=== PATIENT | male | born 1975 | race African-American/Black ===

== ENCOUNTER 2023-07-19 10:19 | Emergency (ER) | payer OTHER, SELFPAY ==
--- NOTE | ~2023-07-19 | CT_ITS ---
EXAMINATION: CT lumbar spine wo con DATE: 07/19/2023 13:29 INDICATION: Low back pain TECHNIQUE: Computed tomography (CT) of the lumbar spine was performed without intravenous contrast. T he dose-length product was 1236.83 mGy-cm. Automated exposure control and iterative reconstruction te chnique were employed. COMPARISON: None FINDINGS: There is disc narrowing and vacuum phenomena at L5-S1 with endplate hypertrophy causing carina ateral neural foraminal narrowing. There is associated disc bulging at this level. No acute fracture or traumatic malalignment. No evidence for spondylolisthesis. Vertebral body heights are maintained. IMPRESSION: 1. Moderate lumbar spondylosis at L5-S1 with associated bilateral neural foraminal narrowing. Reviewed, dictated and finalized at location A. [facility]IC IMPRESSION: 1. Moderate lumbar spondylosis at L5-S1 with associated bilateral neural forami nal narrowing.
[2023-07-19 10:21] VITALS: BP 167/110; PULSE 87; RESP 16; TEMP 36.5; O2SAT 94
--- NOTE | 2023-07-19 13:01 | ED.BACK ---
HPI - Back Pain/Injury General Chief Complaint: Back Pain/Injury Stated Complaint: back pain Time Seen by Provider: 07/19/23 12:34 Source: patient Mode of arrival: ambulatory Limitations: no limitations History of Present Illness HPI Narrative: This is a 48 year old male that presents to the ER for low back pain. Ongoing over the last 4 months. No recent injuries or trauma. Reports he was seen at another facility and given muscle relaxer and anti-inflammatory with little relief. Pain is worse with movement and relieved with rest. Denies saddle anesthesia or bowel/bladder incontinence. Related Data Allergies Allergy/AdvReac Type Severity Reaction Status Date / Time morphine Allergy Unknown Dyspnea / Verified 07/19/23 12:02 SOB Review of Systems Review of Systems: CONSTITUTIONAL: Denies fever MUSCULOSKELETAL: Reports back pain, joint pain, and myalgia. NEUROLOGIC: Denies numbness, or weakness. All systems reviewed & are unremarkable except as noted in HPI and below PMFSH Past Medical History Medical History (Updated 07/19/23 @ 14:55 by Patricia Larsen PA-C) No active medical problems Social History Social History (Updated 07/19/23 @ 13:05 by Patricia Larsen PA-C) Smoking status: Never smoker Exam Narrative: GENERAL: Well-appearing, well-nourished, and in no acute distress. HEAD: Normocephalic, atraumatic. EYES: EOMI. CHEST: Clear to auscultation. No respiratory distress. No wheezes rales or rhonchi HEART: Regular rate and rhythm. No murmur heard. Normal peripheral pulses. BACK: No midline spinal tenderness EXTREMITIES: Normal range of motion. No edema. Strength equal in bilateral lower extremities (5/5). Normal DP pulses SKIN: Warm, dry, no rash. NEURO: No focal deficits. Alert and oriented x3. PSYCH: Normal mood and affect Course Course Emergency Course: Patient updated on his workup and agrees with plan of care Vital Signs Vital signs: Vital Signs Temperature 97.7 F 07/19/23 10:21 Pulse Rate 87 07/19/23 10:21 Respiratory Rate 16 07/19/23 10:21 Blood Pressure 167/110 H 07/19/23 10:21 Pulse Oximetry 94 07/19/23 10:21 Temperature 97.7 F 07/19/23 10:21 Pulse Rate 87 07/19/23 10:21 Respiratory Rate 16 07/19/23 10:21 Blood Pressure 167/110 H 07/19/23 10:21 Pulse Oximetry 94 07/19/23 10:21 MDM - Back Pain/Injury MDM Narrative Medical decision making narrative: This is a 48 year old male that presents to the ER for low back pain ongoing over the last several months. He is neurologically intact. Denies any saddle anesthesia or bowel/bladder incontinence. CT lumbar spine shows moderate lumbar spondylosis at L5-S1 with associated bilateral neuroforaminal narrowing. Patient was updated on his workup and agrees with plan of care. Will be given follow up with neurosurgery. He was given warnings to return to the ER Differential Diagnosis Differential diagnosis: Likely lumbar radiculopathy, sciatica and strain of lumbar region Imaging Data Radiologist's impression: ITS Impressions Lumbar Spine CT 07/19/23 13:36 IMPRESSION: 1. Moderate lumbar spondylosis at L5-S1 with associated bilateral neural foraminal narrowing. Critical Care Time Critical Care Time Critical Care Time: No Discharge Plan Discharge Clinical Impression: Lumbar radiculopathy Patient Disposition: Home, Self-Care Condition: Stable Instructions: Lumbar Radiculopathy (ED) Additional Instructions: Return to the ER if you experience weakness, numbness, bowel/bladder incontinence, or any other symptoms that are concerning to you Rest, use ice/heat, take anti-inflammatories (Aleve, Ibuprofen, Naproxen, etc) or Tylenol as needed for pain as well as muscle relaxer (Diazepam) as needed for pain. Muscle relaxers can make you drowsy, do not drive if you take this. Take steroid taper as prescribed Follow up with neurosurgery Prescriptions: New methylpredniso
[2023-07-19] MEDS: ACETAMINOPHEN 500 MG TABLET 1000 MG PO (13:10)
[2023-07-19] MEDS: diazePAM INJ (*CRX) 10 MG/2 ML SYRINGE 5 MG IM (13:10)
[2023-07-19 15:19] VITALS: BP 130/79; PULSE 80; RESP 17; TEMP 36.6; O2SAT 100
== END 2023-07-19 15:21 | disposition home or self-care (01) ==
PROVIDERS: Emergency Provider Physician Assistant; PCP Family Medicine
DX: M47.26 Other spondylosis with radiculopathy, lumbar region (principal)
CPT/HCPCS: 72131; 96372; 99284; A9270; J3360